=== PATIENT | male | born 1945 | race Caucasian/White ===

== ENCOUNTER → 2016-04-22 | Outpatient (CLI) | payer MEDICARE, BC | END | disposition home or self-care (01) | LOC: CDC 14:10 | DX: Z01.810 Encounter for preprocedural cardiovascular examination (principal); K43.9 Ventral hernia without obstruction or gangrene; K42.9 Umbilical hernia without obstruction or gangrene | CPT/HCPCS: 93000 ==

== ENCOUNTER 2016-05-14 05:32 | Day surgery (SDC) | payer OTHER, BC ==
[~2016-05-14] VITALS: Ht 177.8 cm; Wt 77.2 kg
[~2016-05-14 05:32] MED LIST: ATIVAN0.5 MG PO; AVAPRO150 MG PO; LO-DOSE ASPIRIN81 M2 PO; NEURONTIN300 MG PO; PRILOSEC20 MG PO; TENORMIN25 MG PO; VITAMIN B-121000 MCG PO; VITAMIN D22000 UNIT PO; ZOCOR20 MG PO
[2016-05-14 05:59] VITALS: BP 131/85
[2016-05-14] MEDS ORDERED: PERCOCET 5/31 TABLET PO (10:49)
[2016-05-14] MEDS ORDERED: COLACE100 MG PO (10:49)
[2016-05-14 11:20] VITALS: BP 133/75
[2016-05-14 12:29] VITALS: BP 133/82
[2016-05-14 14:16] VITALS: BP 132/93
[2016-05-14 17:30] VITALS: BP 114/68
[2016-05-14 20:30] VITALS: BP 130/83
== END 2016-05-14 20:35 | disposition home or self-care (01) ==
LOC: SDC 05:32
PROC: 0WUF4JZ Supplement Abdominal Wall with Synthetic Substitute, Percutaneous Endoscopic Approach (ICD-10-PCS; principal; 2016-05-14)
DX: K42.9 Umbilical hernia without obstruction or gangrene (principal); M62.89 Other specified disorders of muscle; E78.5 Hyperlipidemia, unspecified; K21.9 Gastro-esophageal reflux disease without esophagitis; I10 Essential (primary) hypertension; Z79.82 Long term (current) use of aspirin; Z87.891 Personal history of nicotine dependence; Z88.0 Allergy status to penicillin
CPT/HCPCS: C1781; J0330; J1100; J1170; J2405; J2710; J3010